=== PATIENT | female | born 1950 | race Caucasian/White ===

== ENCOUNTER 2018-08-26 11:07 | Observation (INO) | payer MEDICARE, OTHER ==
--- NOTE | 2018-08-26 11:27 | ERNOTE ---
Medical Problem HPI - Narrative Date of Service: 08/26/18 - General Chief Complaint: General Assessment Time Seen by Provider: 08/26/18 11:26 Source: patient Exam Limitations: no limitations - Immun/Allergies/Home Medications Immunizations: IMMUNIZATION HX Immunizations Up to Date Yes History of Influenza Vaccine No Hx Pneumococcal Vaccination No Allergies/Adverse Reactions: Allergies No Known Allergies Allergy (Verified 08/26/18 14:10) Home Medications: HOME MEDICATIONS ranitidine 300 mg tablet 300 mg PO HS #30 tab 08/18/18 [Last Taken 08/24/18 21:00] Losartan Potassium [Cozaar] 50 mg PO DAILY #30 tablet 08/27/18 [Last Taken Unknown] traMADol HCL [Ultram] 50 mg PO BID PRN #60 tablet 08/27/18 [Last Taken Unknown] - Pain Score Pain Score #1 Pain Score: 0 - History of Present History Narrative: The patient is a 67 year old female who presents for "feeling unwell" which has been present since this am. There are associated symptoms of fatigue and nausea. The patient denies pain. There are no alleviating factors. There are no aggravating factors. Previous treatments have included: none. The past medical history includes: gastric ulcer. The social history is negative. The patient has had no ill contacts. Patient states she awoke this am having nausea and fatigue. Patient states she went to work and continued to have worsening symptoms of nausea without emesis, lightheadedness and feeling shaky. Patient states co-worker checked her blood pressure which was significantly elevated with systolic in 200's. Patient states she recently saw and BP was elevated in clinic which is normal for her but with continued monitoring at home has had elevations during activity and normal results during rest. Timing: getting worse Review of Systems - Review of Systems Constitutional: Present: no symptoms reported. Absent: recent illness, fever, fatigue EYE: Present: no symptoms reported. Absent: blurred vision, vision changes ENT: Present: no symptoms reported. Absent: ear pain, nasal drainage, sore throat Respiratory: Present: no symptoms reported. Absent: shortness of breath, cough Cardiology: Present: palpitations. Absent: chest pain, syncope, edema Gastrointestinal/Abdominal: Present: nausea. Absent: vomiting, diarrhea, abdominal pain Genitourinary: Present: no symptoms reported. Absent: dysuria Musculoskeletal: Present: back pain - chronic lumbar pain Skin: Present: no symptoms reported Neurological: Present: no symptoms reported Endocrine: Present: no symptoms reported Hematologic/Lymphatic: Present: no symptoms reported Psych: Present: no symptoms reported All Other Systems: All systems neg except as marked Medical History (Last Reviewed 08/26/18 @ 11:34 by JESIKA Herndon) possible stomach ulcer possible stomach ulcer Surgical History: Surgical History (Last Reviewed 08/26/18 @ 11:34 by JESIKA Herndon) Cholecystectomy planned H/O: hysterectomy Family History: Family History (Last Reviewed 08/26/18 @ 11:34 by JESIKA Herndon) Mother COPD (chronic obstructive pulmonary disease) Hypertension Social History: Preferred Language Kazakh Smoking Status Never smoker Alcohol Use occasionally Drug Use none Physical Exam - Physical Exam General Appearance: Present: wd/wn, alert, no apparent distress Head Exam: Present: normal inspection Eye Exam: Normal inspection: bilateral, PERRL: bilateral, EOMI: bilateral Ears, Nose, Throat: Present: normal ENT inspection, normal pharynx Neck: Present: normal inspection, nontender. Absent: carotid bruit Respiratory: Present: no respiratory distress, normal breath sounds, lungs clear Cardiovascular/Chest: Present: regular rate, rhythm, no murmur Peripheral Pulses: N=norm/S=strong/W=weak/B=bound/A=absent: Radial (R): Normal Gastrointestinal/Abdominal: Present: normal bowel sounds, nontender, nondistended, soft, no organomegaly Back Exam: Present: no CVA tenderness Neurological Exam: Present: alert, oriented, normal mood/affect, no motor/sensory deficits, bit tripoler II-XII nml as tested, normal cerebellar test Skin Exam: Present: normal color, warm/dry ED Progress - Date and Time Seen: Date and Time: 08/26/18 12:48 Discussed care and results with Dr. Diego. Due to possible ECG changes from previous which was taken on 08/18/18 as well as generalized malaise and chest heaviness upon reexamination with HTN patient will be admitted under observation care for . - Results and Orders Patient's Lab Results:: I have reviewed the patient's lab results. - Vital Signs Patient's Vital Signs:: I have reviewed the patient's vital signs. Vital Signs: Vital Signs 08/26/18 11:08 Temperature 36.6 C Pulse Rate 80 Respiratory Rate 16 Blood Pressure 191/84 H O2 Sat by Pulse Oximetry 96 - EKG EKG: NSR EKG read: Reviewed by me EKG Comments: NSR. Presumed delta wave in lead II and aVR. Questionable 2:1 p-wave in lead I and III. Discussed with . - Progress/Reassessment Chief Complaint: General Assessment Departure Clinical Impression: Acute electrocardiogram changes, Chest heaviness Hypertension Qualifiers: Hypertension type: unspecified Qualified Code(s): I10 - Essential (primary) hypertension - Departure Disposition: Still a patient Condition: Good
[2018-08-26 11:58] LABS: Hematocrit 46.4 % (37.0-47.0); Hemoglobin 15.6 gm/dL (12.5-16.0); Mean Cell Volume 90.1 fl (78-100); Mean Corpuscular Hemoglobin 30.3 pg (27-31); Mean Corpuscular Hgb Conc 33.6 g/dl (32-36); Mean Platelet Volume 9.9 fl (8-12.5); Neutrophil # 6.8 K/mm3 (1.3-6.0); Neutrophil % 70.1 % (42-75.0); Platelet Count 313 K/mm3 (150-450); Red Blood Count 5.15 M/mm3 (4.2-5.4); Red Cell Distribution Width 12.9 % (11.5-14.0); White Blood Count 9.8 K/mm3 (4.0-10.5)
[2018-08-26 12:17] LABS: ALT 24 U/L (19-67); AST 18 U/L (0-48); Albumin * 4.1 gm/dl (3.4-5.0); Alkaline Phosphatase * 79 U/L (50-170); Anion Gap 13.7 mmol/L (6.8-13.8); Bilirubin, Total 0.6 mg/dL (0.0-1.1); Blood Urea Nitrogen 15 mg/dL (3-23); Ca. Corrected For Albumin 8.5 mg/dL (8.4-10.2); Calcium * 8.9 mg/dL (7.9-10.9); Carbon Dioxide 23.2 mmol/L (24-32.6); Chloride 102 mmol/L (97-106); Glucose * 115 mg/dL (70-110); Potassium 3.9 mmol/L (3.4-4.6); Sodium 135 mmol/L (132-142); Total Protein 7.8 gm/dL (6.2-8.2); Troponin I Less than 0.017 ng/mL (0.00-0.10)
[2018-08-26] MEDS ORDERED: ONDANSETRON HCL/PF 2 MG/ML VIAL IV ONE (12:46)
[2018-08-26] MEDS ORDERED: ONDANSETRON HCL/PF 2 MG/ML VIAL ONE (12:50)
[2018-08-26] MEDS ORDERED: ASPIRIN 81 MG TAB.CHEW PO ONE (12:53)
[2018-08-26] MEDS ORDERED: ASPIRIN 81 MG TAB.CHEW ONE (13:02)
[2018-08-26] MEDS: LOSARTAN POTASSIUM 50 MG TABLET PO SCH (13:30)
[2018-08-26] MEDS ORDERED: traMADol HCL 50 MG TABLET PO PRN (16:56)
[2018-08-26] MEDS ORDERED: ACETAMINOPHEN 500 MG TABLET PO PRN (16:57)
[2018-08-26] MEDS ORDERED: hydrALAZINE HCL 20 MG/ML VIAL IV ONE (17:00)
--- NOTE | 2018-08-26 17:00 | HP ---
Chief Complaint - Chief Complaint Date of Service: 08/26/18 Time of Service: 16:59 Chief Complaint: Chest Pain, elevated blood pressure History of Present Illness: Millie is a 67 yo female that presented to [facility] ER with lightheadedne ss and dizziness. Her blood pressure was checked outside of clinic and her systolic BP was >200. She presented to [facility] ER where blood pressure remained elevated >180. She reported chest heaviness, shortness of breath, and lightheadedness. She was recently diagnosed with gastric ulcer secondary to aleve. She has been on ranitidine and she reports her symptoms have been improving. She is no longer taking Aleve. She has not previously had a history of high blood pressure. Medical History (Last Reviewed 09/09/18 @ 14:01 by Vangie Milligan) possible stomach ulcer possible stomach ulcer Surgical History: Surgical History (Last Reviewed 09/09/18 @ 14:01 by Vangie Milligan) Cholecystectomy planned H/O: hysterectomy Family History: Family History (Last Reviewed 09/09/18 @ 14:01 by Vangie Milligan) Mother Hypertension COPD (chronic obstructive pulmonary disease) Social History: Patient Lives/Resources Home Utilized Preferred Language Croatian Do you have any advent or No cultural preference? Smoking Status Never smoker Have you smoked in the past 12 No months Alcohol Use occasionally Drug Use none Review Of Systems (GEN) - Review of Systems Generalized/Overall Review: Present: Weakness, Fatigue. Absent: Chills, Fever EENTM: Present: No Symptoms Reported Respiratory: Present: Shortness of Breath. Absent: Cough Cardiac: Present: Chest Pain. Absent: Edema, Palpitations, Syncope Abdominal: Present: Nausea, Abdominal Pain. Absent: Vomiting Genitourinary: Present: No Symptoms Reported Musculoskeletal: Present: No Symptoms Reported Neurological: Present: No Symptoms Reported Skin: Present: No Symptoms Reported Immunizations: IMMUNIZATION HX Immunizations Up to Date Yes History of Influenza Vaccine No Hx Pneumococcal Vaccination No Allergies/Adverse Reactions: Allergies Allergy/AdvReac Type Severity Reaction Status Date / Time No Known Allergies Allergy Verified 09/09/18 14:00 Home Medications: HOME MEDICATIONS ranitidine 300 mg tablet 300 mg PO HS #30 tab 08/18/18 [Last Taken 08/24/18 21:00] Losartan Potassium [Cozaar] 50 mg PO DAILY #30 tab 08/27/18 [Last Taken Unknown] traMADol HCL [Ultram] 50 mg PO BID PRN #60 tab 08/27/18 [Last Taken Unknown] Exam - Exam Vital Signs: Vital Signs - Last Taken Temp 36.5 C 08/26/18 15:38 Pulse 78 08/26/18 15:38 Resp 17 08/26/18 15:38 BP 196/71 H 08/26/18 15:38 Pulse Ox 95 08/26/18 15:38 Constitutional: Present: Alert, Oriented x3, Cooperative ENT Exam: Present: hearing grossly normal Eye Exam: bilateral eye: normal inspection Respiratory: Present: lungs clear, normal breath sounds Cardiovascular/Chest: Present: regular rate, rhythm, no murmur Abdomen: Present: Normal bowel sounds, soft, nontender, nondistended Extremity: Present: normal inspection Skin Exam: Present: normal color, warm/dry, no cyanosis Appearance: Present: appropriate appearance, appropriate insight Eye contact: Present: cooperative, good eye contact, normal speech Thoughts: Present: normal thought pattern, no apparent hallucination Diagnostic Studies: Abnormal Lab Results 08/26/18 08/26/18 Range/Units 11:45 11:45 Neutrophils # 6.8 H (1.3-6.0) K/mm3 Carbon Dioxide 23.2 L (24-32.6) mmol/L Random Glucose 115 H (70-110) mg/dL Laboratory Results WBC 9.8 K/mm3 (4.0-10.5) 08/26/18 11:45 RBC 5.15 M/mm3 (4.2-5.4) 08/26/18 11:45 Hgb 15.6 gm/dL (12.5-16.0) 08/26/18 11:45 Hct 46.4 % (37.0-47.0) 08/26/18 11:45 MCV 90.1 fl (78-100) 08/26/18 11:45 MCH 30.3 pg (27-31) 08/26/18 11:45 MCHC 33.6 g/dl (32-36) 08/26/18 11:45 RDW 12.9 % (11.5-14.0) 08/26/18 11:45 Plt Count 313 K/mm3 (150-450) 08/26/18 11:45 MPV 9.9 fl (8-12.5) 08/26/18 11:45 Immature Gran % (Auto) 0.30 % (0.001-0.429) 08/26/18 11:45 Immature Gran # (Auto) 0.03 K/mm3 (0.000-0.0310) 08/26/18 11:45 Neutrophils % 70.1 % (42-75.0) 08/26/18 11:45 Lymphocytes % 23.8 % (20-51) 08/26/18 11:45 Monocytes % 4.8 % (0.0-9) 08/26/18 11:45 Eosinophils % 0.8 % (0.0-3.0) 08/26/18 11:45 Basophils % 0.2 % (0.0-1.0) 08/26/18 11:45 Nucleated RBC % 0.0 k/mm3 (0-1) 08/26/18 11:45 Neutrophils # 6.8 K/mm3 (1.3-6.0) H 08/26/18 11:45 Lymphocytes # 2.33 k/mm3 (1.5-3.5) 08/26/18 11:45 Monocytes # 0.5 k/mm3 (0.0-1.0) 08/26/18 11:45 Eosinophils # 0.1 k/mm3 (0.0-0.7) 08/26/18 11:45 Absolute Basophils 0.0 k/mm3 (0.0-0.1) 08/26/18 11:45 Sodium 135 mmol/L (132-142) 08/26/18 11:45 Plasma Sodium 135 mmol/L (130-142) 08/26/18 11:45 Potassium 3.9 mmol/L (3.4-4.6) 08/26/18 11:45 Chloride 102 mmol/L (97-106) 08/26/18 11:45 Carbon Dioxide 23.2 mmol/L (24-32.6) L 08/26/18 11:45 Anion Gap 13.7 mmol/L (6.8-13.8) 08/26/18 11:45 BUN 15 mg/dL (3-23) 08/26/18 11:45 Creatinine 0.88 mg/dL (0.4-1.4) 08/26/18 11:45 Est GFR (Non-Af Amer) 68 mL/min (60-130) 08/26/18 11:45 BUN/Creatinine Ratio 17.0 (9.0-21.6) 08/26/18 11:45 Random Glucose 115 mg/dL (70-110) H 08/26/18 11:45 Calcium 8.9 mg/dL (7.9-10.9) 08/26/18 11:45 Calcium Adj for Albumin 8.5 mg/dL (8.4-10.2) 08/26/18 11:45 Total Bilirubin 0.6 mg/dL (0.0-1.1) 08/26/18 11:45 AST 18 U/L (0-48) 08/26/18 11:45 ALT 24 U/L (19-67) 08/26/18 11:45 Alkaline Phosphatase 79 U/L (50-170) 08/26/18 11:45 Troponin I Less than 0.017 ng/mL (0.00-0.10) 08/26/18 11:45 Total Protein 7.8 gm/dL (6.2-8.2) 08/26/18 11:45 Albumin 4.1 gm/dl (3.4-5.0) 08/26/18 11:45 TSH (Reflex) 1.282 uIU/mL (0.358-3.74) 08/26/18 11:45 Assessment/Plan - Narrative Narrative: Millie is a 67yo female with: 1) Accelerated Hypertension/Hypertensive Crisis - Will treat blood pressure by starting losartan, although this may take some time before it has an impact. Will use betablocker vs hydralazine for acute needs while in hospital if systolic BP >180 or Diastolic >110. Suspect blood pressure elevated due to recent stress, Aleve use, Gastric ulcer, etc. 2) Chest Heaviness - Will monitor on telemetry. Will obtain serial troponin. - Assessment/Plan (1) Chest heaviness Problem: Acute (2) Accelerated hypertension Problem: Acute (3) Hypertensive urgency Problem: Acute
[2018-08-26] MEDS ORDERED: METOPROLOL SUCCINATE 25 MG TABLET.SA PO SCH (19:15)
[2018-08-26] MEDS ORDERED: METOPROLOL SUCCINATE 50 MG TABLET.SA PO ONE (19:29)
[2018-08-26] MEDS ORDERED: PANTOPRAZOLE SODIUM 40 MG in NORMAL SALINE 100 ML IV SCH (20:00)
[2018-08-26] MEDS ORDERED: FAMOTIDINE 20 MG TABLET PO SCH (21:00)
--- NOTE | 2018-08-27 06:52 | PN ---
Progess Note - Interim Date: 08/27/18 Time: 06:43 Narrative: 08/27/18 06:43 I was called yesterday for abnormal EKG -LBBB which was confirmed by Dr. Vergara. The patient did not have CP but was lightheaded. She was admitted for high BP and chest discomfort earlier. I ordered a stat troponin which came back less than 0.007 ( same as the 1st) . Looking back at her EKG on 08/18/2018 she also had this LBBB with poor R wave progression. I ordered a repeat troponin and EKG 4 hours from her 2nd set and they came back -LBBB, troponin of less than 0.007. I would recommend Echo to asses structural and functional status of her heart and also a nuclear pharmacologic stress test. Her LBBB while could be from CAD could also be from her hypertension.
[2018-08-27] MEDS: LOSARTAN POTASSIUM 50 MG TABLET PO SCH (09:30)
--- NOTE | 2018-08-27 10:28 | DS ---
(1) Chest heaviness Problem: Acute (2) Accelerated hypertension Problem: Acute (3) Hypertensive urgency Problem: Acute Description of Stay: Millie is a 67 yo female that was admitted due to chest heaviness, dizziness with a blood pressure on arrive of >200/110. EKG showed left bundle branch block which is stable from prior EKG. She had no elevation in troponin. She was given losartan and hydralazine for blood pressure. Which slowly came down to normal over night. This mornings blood pressure is 121/55. She is feeling well. She will be discharged to home. All troponins have been negative. Due to left bundle branch block will set up outpatient stress test (nuclear pharmacological) and echocardiogram. I will continue her on losartan for blood pressure and tramadol for knee pain. I believe her hypertension was caused from pain from her knee which I will further manage and work up as outpatient and also from her daily use of aleve, which was just stopped because I believe it was causing her a stress ulcer. She has since been started on ranitidine and reports her epigastric pain has been improving. Procedures Performed: none Results and Findings: Lab Pending Results 08/26/18 11:45: WBC 9.8, RBC 5.15, Hgb 15.6, Hct 46.4, MCV 90.1, MCH 30.3, MCHC 33.6, RDW 12.9, Plt Count 313, MPV 9.9, Immature Gran % (Auto) 0.30, Immature Gran # (Auto) 0.03, Neutrophils % 70.1, Lymphocytes % 23.8, Monocytes % 4.8, Eosinophils % 0.8, Basophils % 0.2, Nucleated RBC % 0.0, Neutrophils # 6.8 H, Lymphocytes # 2.33, Monocytes # 0.5, Eosinophils # 0.1, Absolute Basophils 0.0 08/26/18 11:45: Sodium 135, Plasma Sodium 135, Potassium 3.9, Chloride 102, Carbon Dioxide 23.2 L, Anion Gap 13.7, BUN 15, Creatinine 0.88, Est GFR (Non-Af Amer) 68, BUN/Creatinine Ratio 17.0, Random Glucose 115 H, Calcium 8.9, Calcium Adj for Albumin 8.5, Total Bilirubin 0.6, AST 18, ALT 24, Alkaline Phosphatase 79, Troponin I Less than 0.017, Total Protein 7.8, Albumin 4.1, TSH (Reflex) 1.282 08/26/18 18:03: Troponin I Less than 0.017 08/26/18 22:11: Troponin I Less than 0.017 Discharge Location: Home Disposition: Home self-care Condition: Good Discharge Activity: Activity as tolerated Discharge Diet: Low salt Referrals: Amrik Diego DO [Primary Care Provider] - One Week (Schedule after 09/05) Problem Oriented Discharge Instructions to Patient/Family: Hypertension, [id number] Additional Patient Instructions (free text): -Please make TCM appointment unless assisted discharge. Thank you! Kathie @ [phone]. Prescriptions (Any new or edited meds): Losartan Potassium [Cozaar] 50 mg PO DAILY #30 tablet traMADol HCL [Ultram] 50 mg PO BID PRN #60 tablet PRN Reason: Moderate Pain (Pain Scale 4-6) Complete Home Medications List: Complete Home Medication List: ranitidine 300 mg tablet 300 mg PO HS #30 tab 08/18/18 Losartan Potassium [Cozaar] 50 mg PO DAILY #30 tablet 08/27/18 traMADol HCL [Ultram] 50 mg PO BID PRN #60 tablet 08/27/18
[2018-08-27 10:50] VITALS: BP 121/55
== END 2018-08-27 11:00 | disposition home or self-care (01) ==
LOC: ER 11:07 → MS 11:07
PROVIDERS: ADMIT Family Medicine; ATTEND Family Medicine
CPT/HCPCS: 36415; 80053; 84443; 84484; 85025; 93005; 96365; 96375; 99285; G0378; J2405

== ENCOUNTER 2020-06-13 06:28 | Observation (INO) ==
[~2020-06-13 06:28] MED LIST: ISOPROPYL ALCOHOL 480 APPL BTL MC ONE; MORPHINE SULFATE 15 MG TABLET.SA PO PRN; ROPIVACAINE HCL/PF 100 MG, EPINEPHrine 0.2 MG, KETOROLAC TROMETHAMINE 30 MG in NORMAL S... IJ PRN; TRANEXAMIC ACID 1,000 MG in NORMAL SALINE 100 ML IV PRN; ceFAZolin SODIUM 1 GM VIAL IV PRN; ceFAZolin SODIUM 1 GM VIAL ONE
[2020-06-13] MEDS ORDERED: BUPIVACAINE HCL/EPINEPHRINE 50 ML VIAL IJ ONE (06:53)
[2020-06-13] MEDS ORDERED: PROPOFOL VIAL IV ONE ×2 (06:54→09:52)
[2020-06-13] MEDS ORDERED: BUPIVACAINE HCL/PF 10 ML VIAL ONE (06:54)
[2020-06-13] MEDS ORDERED: LIDOCAINE HCL 20 ML VIAL ONE ×2 (06:54→09:51)
[2020-06-13] MEDS ORDERED: MIDAZOLAM HCL/PF 5 MG/ML VIAL ONE (06:54)
[2020-06-13] MEDS: RINGER'S SOLUTION,LACTATED 1,000 ML IV PRN ×3 (07:08→09:28)
--- NOTE | 2020-06-13 07:30 | ANES ---
Anesthesia Pre Procedure Eval Vitals/Labs: Last Vital Signs Temp 36.9 C 06/13/20 06:44 Pulse 93 06/13/20 06:44 Resp 18 06/13/20 06:44 BP 171/88 H 06/13/20 06:44 Pulse Ox 96 06/13/20 06:44 HOME MEDICATIONS naproxen sodium 220 mg capsule 220 mg PO BID 05/01/20 [Last Taken 06/02/20 07:00] Allergies/Adverse Reactions: Allergies Allergy/AdvReac Type Severity Reaction Status Date / Time No Known Allergies Allergy Verified 06/13/20 06:50 - Planned Procedure Planned Procedure: Left Arthroplasty Total Knee Medication List Reviewed:: Yes Allergies Verified: Yes Medical History (Last Reviewed 06/13/20 @ 07:29 by Valdez Baez CRNA) Trochanteric bursitis of left hip (Chronic) Onset Date: Unknown Osteoarthritis of knees, bilateral (Chronic) Hypertension (Chronic) Onset Date: Unknown Influenza vaccine refused Onset Date: 08/18/18 Patient refused. 08/18/2018. [email or web address] Knee pain, left Onset Date: 02/11/18 Osteoarthrosis, localized, primary, knee Onset Date: 11/04/16 Right. Medial meniscus tear Onset Date: 03/11/19 Stress reaction of bone Onset Date: 02/11/18 Accelerated hypertension Acute electrocardiogram changes Chest heaviness Closed 2-part displaced fracture of surgical neck of right humerus Onset Date: 06/02/17 Hypertensive urgency Iliotibial band syndrome, left leg Onset Date: 03/19/19 Pes anserinus bursitis of left knee Onset Date: 03/19/19 Stomach ulcer Surgical History (Last Reviewed 06/13/20 @ 07:29 by Valdez Baez CRNA) History of cholecystectomy History of hysterectomy History of tubal ligation Onset Date: Unknown Family History (Last Reviewed 06/13/20 @ 07:29 by Valdez Baez CRNA) Mother COPD (chronic obstructive pulmonary disease) Hypertension Grandmother Hypertension Father , 99- old age - Family Anesthesia History Family History:: no untoward family reactions to anesthesia - Airway/Neck/Teeth Denture Type: Partial upper Neck Exam: full range of motion Mallampatti Score: 2 Thyromental (T-M) distance: > 6 cm Mandibulo Hyoid distance: > 3 cm - Respiratory Respiratory Physical: lungs clear Smoking Status: Never smoker Sleep Apnea currently treated: No Sleep Apnea by current assessment: No - Cardiovascular Tolerate Activity: Fair Heart Sounds: S1 & S2, Regular - Gastrointestinal NPO since: MN - Anesthesia Assessment and Plan ASA Class: PS, II Anesthesia Type Plan: Spinal - adductor canal block Planned difficult intubation/equipment available: No
[2020-06-13] MEDS ORDERED: oxyCODONE HCL/ACETAMINOPHEN 1 TAB TABLET PO PRN (10:04)
[2020-06-13] MEDS ORDERED: ACETAMINOPHEN 500 MG TABLET PO PRN (10:04)
[2020-06-13] MEDS ORDERED: MAG HYDROX/ALUMINUM HYD/SIMETH 30 ML UDC PO PRN (10:04)
[2020-06-13] MEDS ORDERED: ONDANSETRON HCL/PF 2 MG/ML VIAL IV PRN (10:04)
[2020-06-13] MEDS ORDERED: MORPHINE SULFATE 2 MG/ML DISP.SYRIN IV PRN (10:04)
[2020-06-13] MEDS ORDERED: MAGNESIUM HYDROXIDE 30 ML UDC PO PRN (10:04)
--- NOTE | 2020-06-13 10:04 | OR ---
Operative Report - Dictated Report Narrative: Date: 06/13/2020 Preoperative diagnosis: Left knee degenerative joint disease. Postoperative diagnosis: Left knee degenerative joint disease. Procedure: Left knee total knee arthroplasty. Surgeon: Luiz Avalos M.D. Manager R D: William June PA-C provided a set of essential, skilled, educated hands that assisted in positioning, transfer, retraction, manipulation, irrigation, closure of wounds, and placement of dressings all of which could not be provided by the available surgical crew. Anesthesia: Spinal with regional block and local periarticular joint injection. Complications: None Specimens: Bone for disposal. Estimated blood loss: Minimal. Tourniquet time: 66 min @ 300 mmHg of mercury Retained implants: Depuy Attune size 7 standard lugged cemented posterior stabilized femoral component. Size 6 rotating bearing cemented tibial platform. 7 by 7 millimeter posterior stabilized cross-linked tibial insert. 38 mm medialized patella button. Indications: Millie is a 69-year-old female who has been followed in my clinic for period of time with significant complaints of left knee pain consistent with arthritic changes. They had failed conservative measures including but not limited to activity modification, passage of time, medications, and other conservative measures. Patient wished to proceed with surgical treatment. The risks, benefits, and alternatives were discussed in clinic. The risks of , blood clots, bleeding, infection, nerve/tendon blood vessel/ injury, malposition of components, intraoperative fracture, postoperative limited range of motion, persistent pain, failure of components, and need for additional procedures. Marco hilton wished to proceed consent was obtained after answering all questions. Procedure: After marking the correct extremity on the floor, the patient was taken to the operating room. A timeout was performed. IV antibiotics consisting of 2 g of Ancef were administered prior to the procedure. A regional followed by spinal anesthetic was induced by anesthesia. on the operative table with all bony prominences well-padded. Mancia catheter was placed and a bump was placed under the operative side buttock. SCDs and BRITT hose were utilized on the nonoperative leg. A well-padded tourniquet was applied to the operative thigh. The operative leg was then pre-scrubbed with alcohol prepped and draped in a standard sterile fashion. After exsanguinating the extremity with an Esmarch bandage, the tourniquet was inflated. After marking out the anterior knee for standard incision centered over the patella, the skin was incised and dissected down to the joint retinaculum. The joint retinaculum was marked out as well as the horizontal axis of the patella, and a standard medial parapatellar arthrotomy was then made. The most proximal aspect of the quadriceps tendon and the patella tendon insertion were protected from release. A partial synovectomy was performed as well as a resection of the infrapatellar fat pad. The distal femoral fat pad proximal to the trochlea was also resected using cautery. The soft tissues were elevated off the medial aspect of the proximal tibia using a Allen elevator ensuring that we did not transect the medial collateral ligament. Upon initial evaluation range of motion was approximately 0 degrees to 120 degrees of flexion. There were signs of arthrosis in the medial and patellofemoral joint spaces. The knee was hyperflexed and the patella was tucked laterally. Protecting the surrounding soft tissues with Homans, an entry drill was placed down the femoral canal using Whitesides line for guidance into the entry point. The intramedullary femoral alignment juan francisco was utilized in order to cut the distal femur in 5 of valgus resecting 10 millimeters of bone. Next the distal femur was sized to a size 7. An anterior referencing guide was utilized to place the distal femoral cutting block in 3 of external rotation. This was pinned into place. The rotation was confirmed both visually and based on anatomic landmarks. The 4 in 1 cutting jig of the appropriate size was utilized in order to make all bony cuts. Retractors were utilized in order to protect surrounding soft tissues. This cut did not result in any excessive notching. We then cut the box centered over the distal femur. This allowed for resection of the anterior and posterior cruciate ligaments. I then turned my attention to the preparation of the tibia. Using an extra medullary tibial alignment juan francisco, 9 millimeters of bone and cartilage was resected off the lateral articular surface. This was made perpendicular to the mechanical axis of the joint with the alignment juan francisco centered over the ankle mortise. The alignment juan francisco was parallel to the mechanical axis, centered over the medial one third of the tibial tubercle, paralleling the anterior surface of the tibia. We then turned our attention to the remaining meniscus and soft tissues. These were removed while protecting the surrounding ligaments and soft tissues. The marginal osteophytes off the anterior, posterior, medial, lateral aspects of the femur and tibia were removed. The tibia was sized out to a size 6. Next the tibia was drilled and punched in an externally rotated position as confirmed with a drop juan francisco. Next the trial femur and a series of tibial inserts were utilized in order to allow for full extension and maximal flexion. It was found that a 7 millimeter insert gave the best range of motion and stability at multiple flexion points as well as at full extension there was less than 2 mm of gapping both medially and laterally. There is minimal anterior translation with the knee at 90 of flexion and no signs of being able to dislocate the knee. The patella was then prepared. The initial thickness was 25 millimeters. This was reamed down to 15 millimeters parallel to the anterior surface of the patella. It was sized out to a size 38 mm medialized patella button. This was then drilled and trialed. Without any medial restraint the patella tracked appropriately and did not sublux or dislocate. At this point, it was felt these were the appropriate sized implants and all trials were removed. The standard periarticular joint injection consisting of ropivacaine, Toradol, and epinephrine were injected into the periarticular joint tissues. The bony surfaces were thoroughly irrigated with a pulsatile-suction saline irrigation device. A bone plug from the prior resected anterior chamfer cut was placed into the drill hole at the distal femur. The bony surfaces were then dried in preparation for placement of the implants. The cement was vacuum mixed per the operations lieutenant's instructions. The cement was placed on the dry bony surfaces and posterior aspect of the implants. The implants were impacted into place, removing all extruded cement. At this point anesthesia administered tranexamic acid per protocol intravenously. The knee was placed in extension with axial loading with the trial insert while the cement cured. A dilute 0.35% betadyne-saline solution was used to irrigate the knee and allowed to sit in the knee while the cement cured. Once the cement cured, all remaining extruded cement was removed. The knee was placed through a range of motion with the trial insert to ensure appropriate range of motion and stability. Final range of motion was approximately 0 to 125 degrees. The knee was again thoroughly irrigated with pulsatile saline lavage. The final polyethylene insert was then impacted into place ensuring no retained soft tissues. The remaining periarticular joint injection was injected. The knee was then packed with lap sponges which were soaked with dilute betadyne solution and the tourniquet was let down. Pressure was held for approximately 2 minutes and then hemostasis was obtained using electrocautery to coagulate any bleeding vessels. The knee was then placed over a triangle and the arthrotomy was closed with interrupted #1 Vicryl after thoroughly irrigating the joint. The deep and subcutaneous tissues were closed with interrupted 0 and 3-0 Vicryl respectively. Skin was closed with a running subcutaneous 3-0 Monocryl and Prineo dressing. 4 x 4's, ABD, Sof-Rol, and a full leg Kamron wrap were applied. All sponge, needle, blade, and instrument counts were correct prior to closing the wounds. Postoperative condition: The patient was awoken and transferred to the postanesthesia care unit in stable condition. Plan is to be admitted to the inpatient medical/surgical floor postoperatively for 24 hours of IV antibiotics, physical therapy, occupational therapy, and medical co-management. Patient will be weightbearing as tolerated with range of motion as tolerated. DVT prophylaxis will be with SCDs, BRITT hose, and pharmacological anticoagulation. Anticipated hospital stay is approximately 1-2 days.
--- NOTE | 2020-06-13 10:33 | ANES ---
Post Anesthesia Discharge - Transfer of Care Transfer of Care handoff given to nurse: Yes - Discharge from PACU Discharge from PACU when meets criteria: Yes
--- NOTE | 2020-06-13 10:36 | ANES ---
Anesthesia Procedure Note Procedure Note: ANESTHESIA PROCEDURE NOTE Date of procedure: 06/13/2020. Time of procedure: . Performed by: Robert Baez CRNA Manager [employer]: Eufemia Mccarty RN . Preprocedure diagnosis: Left knee DJD. Post procedure diagnosis: Same. Procedure: Ultrasound-guided left adductor canal Indications: Postoperative analgesia. Findings: Patient brought to operating room #4 and given a spinal anesthetic. Patient's left inner thigh was prepped with ChloraPrep. Ultrasound was utilized to identify the saphenous nerve in the left adductor canal. A 20-gauge 4 inch regional block needle was advanced under ultrasound guidance till tip of needle was placed just proximal to the saphenous nerve. 30 mL of 0.25% Marcaine with epinephrine 1-200,000 was injected with adequate spread of local anesthesia noted. Regional block needle was removed intact. EBL: Minimal. Fluids: N/A. Specimen: N/A. Post procedure condition: The patient tolerated the procedure well. No complications were noted. Thank you for this consultation Robert Baez CRNA
--- NOTE | 2020-06-13 11:02 | ANES ---
Post Anesthesia Assessment - Vital Signs Vitals: Last Vital Signs Temp 36.5 C 06/13/20 10:34 Pulse 82 06/13/20 10:34 Resp 20 06/13/20 10:34 BP 126/69 06/13/20 10:34 Pulse Ox 97 06/13/20 10:34 Airway Patency: Normal - Mental Status Level Of Consciousness: Awake - Pain Level Pain Score: 0 - N/V Assessment Nausea/Vomiting Presence: None Dehydration:: No
[2020-06-13] MEDS: NORMAL SALINE 1,000 ML IV PRN ×2 (11:25→19:40)
[2020-06-13] MEDS: oxyCODONE HCL/ACETAMINOPHEN 1 TAB TABLET PO PRN ×2 (14:00→18:42)
[2020-06-13] MEDS: ceFAZolin SODIUM 2 GM in DEXTROSE 5 % IN WATER 50 ML IV SCH ×4 (14:23→21:32)
[2020-06-13] MEDS ORDERED: HYDROmorphone HCL 1 MG/ML DISP.SYRIN ONE (15:17)
[2020-06-13] MEDS: HYDROmorphone HCL 1 MG/ML DISP.SYRIN IV PRN ×2 (15:20→21:41)
[2020-06-13] MEDS ORDERED: SENNOSIDES/DOCUSATE SODIUM 1 TAB TABLET PO SCH (21:00)
[2020-06-14] MEDS: oxyCODONE HCL/ACETAMINOPHEN 1 TAB TABLET PO PRN ×4 (00:50→14:42)
[2020-06-14] MEDS: ceFAZolin SODIUM 2 GM in DEXTROSE 5 % IN WATER 50 ML IV SCH ×2 (05:01)
[2020-06-14] MEDS ORDERED: ENOXAPARIN SODIUM 40 MG/0.4 ML SYRG SC SCH (09:06)
--- NOTE | 2020-06-14 09:06 | DS ---
(1) Status post total left knee replacement using cement Problem: Acute Date of Discharge:: 06/14/20 Hospital Course: -69-year-old female postop day 1 status post left total knee arthroplasty. Patient had mild pain postoperatively it was well controlled with pain medication. Patient has been up and ambulating down the schrader without significant complication. She is using a walker for ambulation. Patient notes her pain is worse with ambulation better with rest however she rates it at a 0/1 0 while sitting, 6/10 weightbearing. Patient denies any other significant radiating symptoms. Patient is otherwise tolerating a p.o. diet. She continues to work towards goals with PT/OT. Exam left lower extremity reveals sensation intact light touch, distal capillary refill brisk, pernio dressing in place, no significant erythema or drainage, diffuse mild tenderness about left knee. Patient will otherwise continue with the following recommendations: -PT/OT progress as tolerated per protocol -Assistive device PRN -P.o. pain medication PRN -Diet as tolerated -DVT prophylaxis 325 mg aspirin twice daily for 7 days followed by 325 mg aspirin daily for 6 weeks, BRITT isabel knee-high -Follow-up with orthopedic outpatient clinic at 2 weeks postop -Maintain dressing in place -Monitor surgical incision for significant erythema or drainage -Disposition: Discharge home with self-care, begin outpatient PT Procedures Performed: see notes below List Procedures: Status post left total knee arthroplasty Discharge Location: Home Disposition: Home self-care Condition: Stable Discharge Activity: Activity as tolerated, Weight bearing - Assistive device PRN Discharge Diet: General/regular food Referrals: Amrik Diego DO [Staff Physician] - Problem Oriented Discharge Instructions to Patient/Family: Total Knee Replacement, Care After, [id number] Print Language (Hong [place]er or Persian Available): [place]er Additional Patient Instructions (free text): Physical Therapy at [facility] outpatient therapy on June 15 at 9:30am. Follow up Orthopedic office appointment on FridayJune 28 at 9:00am. Prescriptions (Any new or edited meds): Aspirin 325 mg PO BID #60 tab Transmission Status: Pending to [facility] oxyCODONE HCL/ACETAMINOPHEN [Percocet 5 MG/325 MG] 1 - 2 tab PO Q4H PRN #60 tab PRN Reason: Severe Pain (Pain Scale 7-10) Transmission Status: Received by [facility] Complete Home Medications List: Complete Home Medication List: naproxen sodium 220 mg capsule 220 mg PO BID 05/01/20 Aspirin 325 mg PO BID #60 tab 06/14/20 oxyCODONE HCL/ACETAMINOPHEN [Percocet 5 MG/325 MG] 1 - 2 tab PO Q4H PRN #60 tab 06/14/20 Amb Orders for Discharge: PT Evaluation and Treatment* Location: None Selected Forms: Patient Portal Registration
[2020-06-14 15:09] VITALS: BP 163/62
== END 2020-06-14 15:05 | disposition home or self-care (01) ==
LOC: SUR 06:28 → MS 06:28
PROVIDERS: ADMIT Orthopaedic Surgery; ATTEND Orthopaedic Surgery
CPT/HCPCS: 73560; 97110; 97116; 97161; 97165; 97535